=== PATIENT | female | born 1985 | race Caucasian/White ===

== ENCOUNTER 2018-08-31 21:09 | Emergency (ER) | payer OTHER ==
[~2018-08-31] VITALS: Ht 160 cm; Wt 104.5 kg
[2018-08-31 21:17] VITALS: TEMP 98.9
[2018-08-31] MEDS ORDERED: LEXAPRO20 MG (21:47)
[2018-08-31 22:08] LABS: BASO % 0.4 % (0.0-2.0); EOS # 0.2 (0.0-0.7); EOS % 2.3 % (0-4.0); GRAN # 3.4 (1.4-6.5); GRAN % 48.4 % (42.2-75.2); HEMOGLOBIN 11.6 g/dl (12.5-16.0); LYMPH # 2.9 (1.2-3.4); LYMPH % 41.3 % (20.0-51.0); MEAN CELL VOLUME 91 fl (80.0-100.0); MEAN CORPUSCULAR HEMOGLOBIN 30 pg (27.0-31.0); MEAN CORPUSCULAR HGB CONC 33 g/dl (33.0-37.0); MEAN PLATELET VOLUME 9.9 fl (7.4-10.4); MONO # 0.5 (0.1-0.6); MONO % 7.5 % (1.7-9.3); PLATELET COUNT 364 K/mm3 (130-400); RED BLOOD COUNT 3.87 M/mm3 (4.10-5.30); REDCELL DISTRIBUTION WIDTH-CV 12.8 % (11.5-14.5)
[2018-08-31 22:16] LABS: HEMATOCRIT 35.1 % (37.0-47.0)
[2018-08-31 22:19] LABS: ALANINE AMINOTRANSFERASE 11 U/L (9-52); ALBUMIN 4.1 gm/dL (3.5-5.0); ALKALINE PHOSPHATASE 59 U/L (50-136); ANION GAP 10 mmol/L (7-16); AST,SGOT 29 U/L (15-37); BILIRUBIN,TOTAL 0.2 mg/dL (0.0-1.0); BLOOD UREA NITROGEN 12 mg/dL (7-17); C-REACTIVE PROTEIN 1.2 mg/dL (0.0-0.9); CALCIUM 9.6 mg/dL (8.4-10.2); CARBON DIOXIDE 25 mmol/L (22-30); CHLORIDE 104 mmol/L (98-107); CREATINE KINASE 49 U/L (30-135); CREATININE, serum 0.76 (0.52-1.25); GLUCOSE 98 mg/dL (74-106); POTASSIUM 3.8 mmol/L (3.4-5.0); PROTHROMBIN TIME 11.2 SECONDS (9.7-12.8); SODIUM 139 mmol/L (137-145); TOTAL PROTEIN 7.5 gm/dL (6.4-8.2)
[2018-08-31 23:21] LABS: TROPONIN-I < 0.012 ng/mL (0.000-0.035)
[2018-09-01 01:53] VITALS: BP 122/79; PULSE 74
== END 2018-09-01 01:53 | disposition home or self-care (01) ==
LOC: COL.ER 21:09
PROVIDERS: Emergency Medicine
DX: M79.602 Pain in left arm (principal)

== ENCOUNTER 2019-06-09 17:36 | Outpatient (CLI) | payer OTHER ==
[~2019-06-09] VITALS: Wt 105.0 kg
--- NOTE | 2019-06-09 17:30 | NUR ---
Pt sent over to be evaluated, taken to [facility]. Pt was at work today and started having a "terrible headache". She works by [employer] and went to take her BP and it was 170/91. 24.5 weeks gestation, G1. Pt with hx of infertility and had IVF to get . Pt also has Ehler's-Danlos syndrome and states she has had multiple Ortho surgeries in the past. Pt to [facility], explained. Urine obtained and at 1750, laborer landscape here and blood drawn. Intital BP 138/80 and repeat was 128/80. FHR reactive and no contractions noted. Pt denies any vaginal bleeding or leaking of fluid. No swelling noted to lower extremities. Assessment complete and will notify physician with lab results and serial BP's.
[~2019-06-09 17:36] MED LIST: LEXAPRO20 MG
[2019-06-09 17:42] VITALS: BP 138/80; PULSE 71; TEMP 98
[2019-06-09] MEDS ORDERED: ASPIRIN 81M81 MG/TA2 PO (17:47)
[2019-06-09] MEDS ORDERED: ZOLOFT 100MG100 MG PO (17:48)
[2019-06-09] MEDS ORDERED: PRENATAL PO (17:48)
[2019-06-09] MEDS ORDERED: WELLBUTRIN XL150 MG PO (17:48)
[2019-06-09 17:57] LABS: COLLECTION METHOD CLEAN CATCH
[2019-06-09 18:00] VITALS: BP 128/80; PULSE 71; TEMP 98
[2019-06-09 18:07] LABS: HEMOGLOBIN 10.8 g/dl (12.5-16.0); MEAN CELL VOLUME 89 fl (80.0-100.0); MEAN CORPUSCULAR HEMOGLOBIN 29 pg (27.0-31.0); MEAN CORPUSCULAR HGB CONC 33 g/dl (33.0-37.0); MEAN PLATELET VOLUME 10.4 fl (7.4-10.4); PLATELET COUNT 318 K/mm3 (130-400); RED BLOOD COUNT 3.67 M/mm3 (4.10-5.30); REDCELL DISTRIBUTION WIDTH-CV 13.5 % (11.5-14.5)
--- NOTE | 2019-06-09 18:09 | NUR ---
Prolonged decel noted. FHR decreased 60bpm, nurse at bedside to adjust monitors and unable to monitor for 2 minutes, pt repositioned and FHR increases back to baseline over [address] Dior called, see physician notification.
[2019-06-09 18:13] LABS: HEMATOCRIT 32.6 % (37.0-47.0)
[2019-06-09 18:15] LABS: ALBUMIN 3.8 gm/dL (3.5-5.0); BILIRUBIN,TOTAL 0.3 mg/dL (0.0-1.0); CALCIUM 9.1 mg/dL (8.4-10.2); CREATININE, serum 0.47 (0.52-1.25); POTASSIUM 3.9 mmol/L (3.4-5.0); TOTAL PROTEIN 7.1 gm/dL (6.4-8.2)
[2019-06-09 18:21] LABS: MUCOUS Present /lpf; PH 6 (5-8); URINE APPEARANCE Hazy; URINE BACTERIA Occasional /hpf; URINE BILIRUBIN Negative (NEGATIVE); URINE BLOOD Negative (NEGATIVE); URINE COLOR Yellow; URINE GLUCOSE Negative (NEGATIVE); URINE KETONE Negative (NEGATIVE); URINE LEUKOCYTE ESTERASE 1+ (NEGATIVE); URINE NITRATE Negative (NEGATIVE); URINE PROTEIN(semi-quant) Negative (NEGATIVE); URINE UROBILINOGEN Negative (NEGATIVE)
[2019-06-09 19:00] VITALS: BP 129/81; PULSE 73
[2019-06-09 19:53] VITALS: BP 110/58; PULSE 69
== END 2019-06-09 20:00 | disposition home or self-care (01) ==
LOC: LDRO 17:36
PROVIDERS: Obstetrics & Gynecology
DX: O16.2 Unspecified maternal hypertension, second trimester (principal); Z3A.24 24 weeks gestation of pregnancy

== ENCOUNTER 2019-09-04 07:07 | Inpatient (IN) | payer OTHER ==
[~2019-09-04] VITALS: Ht 162.6 cm; Wt 107.3 kg
[2019-09-04] VITALS (26 sets, daily range): BP systolic 106–149; BP diastolic 54–88; PULSE 54–93; TEMP 97.4–98.4
[~2019-09-04 07:07] MED LIST changes: +ASPIRIN 81M81 MG/TA2 PO; +IRON TABLETS325 MG PO; +PRENATAL PO; +PRILOSEC 20MG20 MG PO; +PROMETHAZINE12.5 M5 PO; +WELLBUTRIN XL150 MG PO; +ZOLOFT 100MG100 MG PO
[2019-09-04 08:25] LABS: COLLECTION METHOD CLEAN CATCH
[2019-09-04 08:39] LABS: ALBUMIN 3.5 gm/dL (3.5-5.0); BASO % 0.3 % (0.0-2.0); BILIRUBIN,TOTAL 0.4 mg/dL (0.0-1.0); CALCIUM 8.9 mg/dL (8.4-10.2); CREATININE, serum 0.5 (0.52-1.25); EOS # 0.1 (0.0-0.7); EOS % 1.3 % (0-4.0); GRAN % 62.3 % (42.2-75.2); HEMATOCRIT 31.7 % (37.0-47.0); HEMOGLOBIN 10.5 g/dl (12.5-16.0); LYMPH # 1.8 (1.2-3.4); LYMPH % 28.7 % (20.0-51.0); MEAN CELL VOLUME 88 fl (80.0-100.0); MEAN CORPUSCULAR HEMOGLOBIN 29 pg (27.0-31.0); MEAN CORPUSCULAR HGB CONC 33 g/dl (33.0-37.0); MEAN PLATELET VOLUME 11.1 fl (7.4-10.4); MONO # 0.5 (0.1-0.6); MONO % 7.1 % (1.7-9.3); PLATELET COUNT 260 K/mm3 (130-400); POTASSIUM 3.4 mmol/L (3.4-5.0); REDCELL DISTRIBUTION WIDTH-CV 13.3 % (11.5-14.5); TOTAL PROTEIN 6.8 gm/dL (6.4-8.2)
[2019-09-04 09:01] LABS: MUCOUS Present /lpf; PH 5 (5-8); URINE APPEARANCE Cloudy; URINE BACTERIA Rare /hpf; URINE BILIRUBIN Negative (NEGATIVE); URINE BLOOD 2+ (NEGATIVE); URINE CALCIUM OXALATE CRYSTAL Present /hpf; URINE COLOR Yellow; URINE GLUCOSE Negative (NEGATIVE); URINE KETONE Negative (NEGATIVE); URINE LEUKOCYTE ESTERASE 1+ (NEGATIVE); URINE NITRATE Negative (NEGATIVE); URINE PROTEIN(semi-quant) Negative (NEGATIVE); URINE RBC 0-2 /hpf; URINE UROBILINOGEN Negative (NEGATIVE)
--- NOTE | 2019-09-04 09:53 | NUR ---
Pt sitting at EOB for epidural placement. Difficulty tracing FHR due to maternal position. RN at bedside adjusting monitors. FHR naeem.
--- NOTE | 2019-09-04 11:20 | NUR ---
Dr. Scott at bedside. SVE per provide C/+1. Pt prepped for delivery and coached on pushing. Begins pushing with provider. 1132- of viable male attended by Dr. Scott. NC x 1. Cord clamped x 2 and cut from umbilicus. Infant dried and placed on mother's abdomen. Care of infant to Mami Menjivar RN. Apgars 8/9/9. 1135- of placenta. Fundus firm at umbilicus. Bleeding WNL. Pitocin bolus infusing per protocol. Second degree laceration repair per provider. Pericare care performed. Pt updated on POC. Safety reviewed. Bed locked in low position. Call light within reach. No questions or concerns at this time.
[2019-09-04] MEDS ORDERED: MOTRIN 800800 MG/TAB PO (11:51)
--- NOTE | 2019-09-04 14:40 | NUR ---
Pt arrives on unit ambulatory with spouse for possible SROM. States LOF with no obvious gush of fluid at 0830 that has continued throughout the day. Denies regular ctx and vaginal bleeding. Reports GFM. Changed into a clean gown. EFM and toco applied. VSS. Mucous present upon vaginal exam. Amniotest resulted dark black with no fluid noted on glove. SVE 4/80/-2 with BOW felt on exam. Dr. Mancini notified. See physician notification. Admission assessment completed. Pt updated on POC. Bed locked in low position. Call light within reach. No questions or concerns at this time.
[2019-09-05 05:20] VITALS: BP 135/76; PULSE 72; TEMP 98.2
[2019-09-05 08:00] VITALS: BP 116/76; PULSE 87; TEMP 97.4
[2019-09-05 17:13] VITALS: BP 118/76; PULSE 86; TEMP 98.1
--- NOTE | 2019-09-05 17:14 | NUR ---
ALL DISCHARGE INSTRUCTIONS GIVENT O PATIENT AND WITH VERBAL UNDERSTANDING NOTED.
== END 2019-09-05 19:05 | disposition home or self-care (01) | DRG 806 ==
LOC: OB 07:07 → LDR 07:07 → OB 14:00
PROVIDERS: ADMIT Obstetrics & Gynecology
PROC: 10E0XZZ Delivery of Products of Conception, External Approach (ICD-10-PCS; principal; 2019-09-04)
PROC: 0KQM0ZZ Repair Perineum Muscle, Open Approach (ICD-10-PCS; 2019-09-04)
PROC: 10907ZC Drainage of Amniotic Fluid, Therapeutic from Products of Conception, Via Natural or Artificial Opening (ICD-10-PCS; 2019-09-04)
PROC: 3E033VJ Introduction of Other Hormone into Peripheral Vein, Percutaneous Approach (ICD-10-PCS; 2019-09-04)
DX: O10.92 Unspecified pre-existing hypertension complicating childbirth (principal); Q79.60 Ehlers-Danlos syndrome, unspecified; Z37.0 Single live birth; O99.344 Other mental disorders complicating childbirth; F41.9 Anxiety disorder, unspecified; F32.9 Major depressive disorder, single episode, unspecified; O69.1XX0 Labor and delivery complicated by cord around neck, with compression, not applicable or unspecified; O99.214 Obesity complicating childbirth; O70.1 Second degree perineal laceration during delivery; Z3A.37 37 weeks gestation of pregnancy
CPT/HCPCS: J2590; J7120